=== PATIENT | female | born 2000 | race Two or more races ===

== ENCOUNTER 2024-05-14 20:56 | Emergency (ER) | payer SELFPAY ==
[~2024-05-14] VITALS: Ht 160 cm; Wt 60.0 kg
[2024-05-14 20:56] VITALS: O2SAT 99
[2024-05-14 21:35] LABS: Urine Bacteria None Seen /hpf (None Seen)
[2024-05-14 21:48] LABS: Urine Blood 3+ /uL (Negative); Urine Clarity Ex.Turbid (Clear); Urine Color Light-Red (Yellow); Urine Protein, UAD 1+ (Negative); Urine Specific Gravity 1.024 (1.001-1.035); Urine Urobilinogen Normal (Negative); Urine WBC 48 /hpf (0 - 5); Urine pH 6.5 (5.0-9.0)
[2024-05-14 21:50] LABS: Basophils # (auto) 0 10 ^3/uL (0-0.2); Basophils % (auto) 0.6 % (0.0-2.0); Eosinophils # (auto) 0.1 10 ^3/uL (0-0.8); Eosinophils % (auto) 1.7 % (0.0-7.0); Hematocrit 36.8 % (36.0-46.0); Hemoglobin 12.3 g/dL (12.2-16.2); Lymphocytes # (auto) 2.8 10 ^3/uL (0.4-5.4); Lymphocytes % (auto) 47.9 % (10.0-50.0); Mean Corpuscular Hemoglobin 29.3 pg (28.0-32.0); Mean Corpuscular Hgb Conc. 33.4 g/dL (32.0-36.0); Mean Corpuscular Volume 87.7 fL (80.0-100.0); Monocytes # (auto) 0.5 10 ^3/uL (0-1.3); Monocytes % (auto) 7.9 % (0.0-12.0); Neutrophils # (auto) 2.5 10 ^3/uL (1.6-8.6); Neutrophils % (auto) 41.9 % (37.0-80.0); Nucleated Red Blood Cells % 0.1 %; Red Cell Distribution Width 15.6 % (11.8-14.3); White Blood Cell 5.9 10^3/uL (4.4-10.8)
[2024-05-14 21:58] LABS: Chloride 109 mmol/L (98-107); Potassium 3.5 mmol/L (3.5-5.1); Sodium 140 mmol/L (136-145)
[2024-05-14 21:59] LABS: Anion Gap 8 (5-15); Calcium 9.9 mg/dL (8.7-10.4); Carbon Dioxide 23 mmol/L (20-30)
[2024-05-14 22:04] LABS: BUN/Creatinine Ratio 9.4 (10.0-20.0); Blood Urea Nitrogen 8 mg/dL (9-23); Glucose 127 mg/dL (74-106)
[2024-05-14 23:17] LABS: INR 1.04 (0.9-1.15); Partial Thromboplastin Time 27.3 SEC (24.5-34.5)
[2024-05-15 01:00] VITALS: BP 120/66; PULSE 74; RESP 18; TEMP 98.9
== END 2024-05-15 01:31 | disposition home or self-care (01) ==
LOC: ER 20:56
DX: O36.4XX0 Maternal care for intrauterine death, not applicable or unspecified (principal); R10.2 Pelvic and perineal pain; O26.891 Other specified pregnancy related conditions, first trimester; Z3A.08 8 weeks gestation of pregnancy; Z88.0 Allergy status to penicillin
CPT/HCPCS: 36415; 76801; 76817; 80048; 81001; 84702; 85025; 85610; 85730